=== PATIENT | female | born 1940 | race Caucasian/White ===

== ENCOUNTER 2020-07-18 22:03 | Inpatient (IN) ==
[2020-07-18 23:58] LABS: Bilirubin,Urine Negative (Negative); Blood,Urine Trace-intact (Negative); Clarity,Urine Clear (Clear); Color,Urine Yellow (Yellow); Glucose,Urine (UA) Normal (Normal); Ketones,Urine Negative (Negative); Leukocyte Esterase,Urine Trace (Negative); Nitrite,Urine Negative (Negative); PH,Urine 5.5 pH Units (5.0-8.0); Protein,Urine Negative (Neg-Trace); Urobilinogen,Urine Normal (Normal)
[2020-07-18 23:59] LABS: Basophils % 0.4 %; Eosinophils # 0.2 K/mcL (0.0-0.6); Eosinophils % 1.8 %; Hematocrit 32.1 % (35.3-44.9); Hemoglobin 9.9 g/dL (11.5-15.4); Immature Granulocytes % 0.7 % (0-4); Lymphocytes # 1.1 K/mcL (0.6-4.6); Lymphocytes % 10.8 %; Mean Corpuscular HGB Conc 30.8 g/dL (31.6-35.5); Mean Corpuscular Hemoglobin 28.5 pg (28.0-33.3); Mean Corpuscular Volume 92.5 fL (83.0-100.0); Mean Platelet Volume 10.3 fL (9.4-12.4); Monocytes # 0.6 K/mcL (0.0-1.3); Monocytes % 6.4 %; Platelet Count 188 K/mcL (140-400); Red Blood Count 3.47 M/mcL (3.82-4.97); Red Cell Distribution Width 17.1 % (11.5-14.5); Segmented Neutrophils % 79.9 %
[2020-07-19 00:09] LABS: INR 1.1; Prothrombin Time 12.3 Seconds (9.4-12.1)
[2020-07-19 00:11] LABS: Troponin I < 0.03 ng/mL (< 0.04)
[2020-07-19 00:16] LABS: RBC,Urine 0-3 per hpf (0-3); Squamous Epithelial Cell,Urine Few per hpf (None-Few); WBC,Urine 0-3 per hpf (0-3)
[2020-07-19 00:24] LABS: Thyroid Stimulating Hormone 2.802 mcIU/mL (0.340-5.600)
[2020-07-19 00:49] LABS: Alanine Aminotransferase 16 Units/L (7-52); Albumin 3.2 g/dL (3.5-5.7); Albumin/Globulin Ratio 0.9 (1.1-2.2); Alkaline Phosphatase 85 Units/L (34-104); Aspartate Amino Transferase 18 Units/L (13-39); BUN/Creatinine Ratio 23 (6-26); Bilirubin,Total 0.5 mg/dL (0.3-1.0); Blood Urea Nitrogen 37 mg/dL (8-23); Calcium 8.4 mg/dL (8.6-10.3); Carbon Dioxide 24 mEq/L (23-29); Chloride 105 mEq/L (98-107); Globulin 3.5 g/dL (2.4-3.5); Glucose 128 mg/dL (70-105); Osmolality,Calculated 296 (280-300); Potassium 3.8 mEq/L (3.5-5.1); Sodium 138 mEq/L (136-145); Total Protein 6.7 g/dL (6.4-8.9); eGFR For African Americans 37 (> 60); eGFR For Non-African Americans 31 (> 60)
[2020-07-19] MEDS ORDERED: Ipratropium/Albuterol Neb 3 ML IH STA (01:46)
[2020-07-19] MEDS ORDERED: Ondansetron 4 MG/2 ML VIAL IVP PRN (03:36)
[2020-07-19] MEDS ORDERED: Naloxone 0.4 MG/ML INJ IVP PRN (03:36)
[2020-07-19] MEDS: Ipratropium/Albuterol Neb 3 ML IH SCH ×2 (04:49→08:40)
[2020-07-19 08:04] LABS: Basophils % 0.2 %; Eosinophils # 0.1 K/mcL (0.0-0.6); Eosinophils % 1.3 %; Hematocrit 28.6 % (35.3-44.9); Hemoglobin 8.8 g/dL (11.5-15.4); Immature Granulocytes % 0.8 % (0-4); Lymphocytes # 1.5 K/mcL (0.6-4.6); Lymphocytes % 18.6 %; Mean Corpuscular HGB Conc 30.8 g/dL (31.6-35.5); Mean Corpuscular Hemoglobin 28.6 pg (28.0-33.3); Mean Corpuscular Volume 92.9 fL (83.0-100.0); Mean Platelet Volume 10.2 fL (9.4-12.4); Monocytes # 0.6 K/mcL (0.0-1.3); Monocytes % 7.6 %; Neutrophils # 5.9 K/mcL (1.6-8.9); Platelet Count 154 K/mcL (140-400); Red Blood Count 3.08 M/mcL (3.82-4.97); Red Cell Distribution Width 17.2 % (11.5-14.5); Segmented Neutrophils % 71.5 %; White Blood Count 8.3 K/mcL (4.3-11.1)
[2020-07-19 08:29] LABS: Potassium 3.7 mEq/L (3.5-5.1)
[2020-07-19 08:39] LABS: Prothrombin Time 11.5 Seconds (9.4-12.1)
[2020-07-19] MEDS: Loratadine 10 MG TABLET PO SCH (08:49)
[2020-07-19] MEDS: Aspirin 325 MG TABLET PO SCH (08:50)
[2020-07-19] MEDS: *HR* LORazepam 0.5 MG TABLET PO SCH ×2 (08:50→20:00)
[2020-07-19] MEDS: hydroCHLOROthiazide 25 MG TABLET PO SCH (08:55)
[2020-07-19] MEDS: lisinopriL 20 MG TABLET PO SCH (08:55)
[2020-07-19] MEDS: Verapamil ER (24 HR) 180 MG TABLET.ER PO SCH (08:55)
[2020-07-19] MEDS ORDERED: *HR* SitaGLIPtin 25 MG TABLET PO SCH (09:00)
[2020-07-19] MEDS: Budesonide/Formoterol 160/4.5 1 PUFF INH IH SCH ×2 (10:25→21:40)
[2020-07-19] MEDS: Ipratropium/Albuterol Neb 3 ML IH PRN (22:35)
[2020-07-20] MEDS ORDERED: methylPREDNISolone 125 MG/2 ML VIAL IVP ONE (08:30)
[2020-07-20] MEDS: *HR* LORazepam 0.5 MG TABLET PO SCH ×2 (08:58→21:45)
[2020-07-20] MEDS: Verapamil ER (24 HR) 180 MG TABLET.ER PO SCH (08:58)
[2020-07-20] MEDS: hydroCHLOROthiazide 25 MG TABLET PO SCH (08:58)
[2020-07-20] MEDS: Loratadine 10 MG TABLET PO SCH (08:59)
[2020-07-20] MEDS: Aspirin 325 MG TABLET PO SCH (08:59)
[2020-07-20] MEDS: *HR* SitaGLIPtin 25 MG TABLET PO SCH (08:59)
[2020-07-20] MEDS: lisinopriL 20 MG TABLET PO SCH (08:59)
[2020-07-20 09:06] LABS: Thyroid Stimulating Hormone 2.006 mcIU/mL (0.340-5.600)
[2020-07-20] MEDS: Ipratropium/Albuterol Neb 3 ML IH PRN (10:54)
[2020-07-20] MEDS: Budesonide/Formoterol 160/4.5 1 PUFF INH IH SCH ×2 (10:54→21:56)
[2020-07-20] MEDS ORDERED: Furosemide 20 MG/2 ML VIAL IVP ONE (16:00)
[2020-07-20 17:32] LABS: Triiodothyronine (T3) Free 2.06 pg/mL (2.50-3.90)
[2020-07-21 06:21] LABS: Hematocrit 27.2 % (35.3-44.9); Hemoglobin 8.5 g/dL (11.5-15.4); Mean Corpuscular HGB Conc 31.3 g/dL (31.6-35.5); Mean Corpuscular Hemoglobin 28.8 pg (28.0-33.3); Mean Corpuscular Volume 92.2 fL (83.0-100.0); Mean Platelet Volume 10.7 fL (9.4-12.4); Platelet Count 151 K/mcL (140-400); Red Blood Count 2.95 M/mcL (3.82-4.97); Red Cell Distribution Width 16.8 % (11.5-14.5); White Blood Count 10.4 K/mcL (4.3-11.1)
[2020-07-21 06:39] LABS: Calcium 7.8 mg/dL (8.6-10.3); Potassium 4.5 mEq/L (3.5-5.1)
[2020-07-21] MEDS: Loratadine 10 MG TABLET PO SCH (08:09)
[2020-07-21] MEDS: *HR* SitaGLIPtin 25 MG TABLET PO SCH (08:09)
[2020-07-21] MEDS: Verapamil ER (24 HR) 180 MG TABLET.ER PO SCH (08:09)
[2020-07-21] MEDS: hydroCHLOROthiazide 25 MG TABLET PO SCH (08:09)
[2020-07-21] MEDS: lisinopriL 20 MG TABLET PO SCH (08:10)
[2020-07-21] MEDS: *HR* LORazepam 0.5 MG TABLET PO SCH ×2 (08:10→19:39)
[2020-07-21] MEDS: Aspirin 325 MG TABLET PO SCH (08:10)
[2020-07-21] MEDS: Ipratropium/Albuterol Neb 3 ML IH PRN ×2 (09:53→16:44)
[2020-07-21] MEDS: Budesonide/Formoterol 160/4.5 1 PUFF INH IH SCH ×2 (09:53→20:21)
[2020-07-21] MEDS: Nystatin POWDER 30 GM BOTTLE TP SCH ×2 (13:30→19:39)
[2020-07-21] MEDS: MethylPREDNISolone 40 MG/ML VIAL IVP SCH ×3 (13:32→23:34)
[2020-07-21] MEDS ORDERED: Dextrose Gel 15 GM/37.5 ML TUBE PO PRN ×2 (20:07)
[2020-07-21] MEDS ORDERED: D5% in Water 1,000 ML IVC PRN (20:07)
[2020-07-21] MEDS ORDERED: *HR* Dextrose 50 % in Water (Vial) 50 ML VIAL IVP PRN (20:07)
[2020-07-21] MEDS: Acetaminophen 325 MG TABLET PO PRN (20:33)
[2020-07-21] MEDS: Insulin LISPRO 300 UNITS/3 ML VIAL SQ SCH (20:34)
[2020-07-22 05:34] LABS: Hematocrit 27.7 % (35.3-44.9); Hemoglobin 8.7 g/dL (11.5-15.4); Mean Corpuscular HGB Conc 31.4 g/dL (31.6-35.5); Mean Corpuscular Hemoglobin 29.2 pg (28.0-33.3); Mean Platelet Volume 10.1 fL (9.4-12.4); Platelet Count 185 K/mcL (140-400); Red Blood Count 2.98 M/mcL (3.82-4.97); Red Cell Distribution Width 17.2 % (11.5-14.5); White Blood Count 12.9 K/mcL (4.3-11.1)
[2020-07-22 06:52] LABS: Calcium 7.7 mg/dL (8.6-10.3); Potassium 4.9 mEq/L (3.5-5.1)
[2020-07-22] MEDS: Aspirin 325 MG TABLET PO SCH (08:13)
[2020-07-22] MEDS: hydroCHLOROthiazide 25 MG TABLET PO SCH (08:13)
[2020-07-22] MEDS: *HR* SitaGLIPtin 25 MG TABLET PO SCH (08:13)
[2020-07-22] MEDS: *HR* LORazepam 0.5 MG TABLET PO SCH ×2 (08:13→20:16)
[2020-07-22] MEDS: Loratadine 10 MG TABLET PO SCH (08:13)
[2020-07-22] MEDS: Verapamil ER (24 HR) 180 MG TABLET.ER PO SCH (08:13)
[2020-07-22] MEDS: MethylPREDNISolone 40 MG/ML VIAL IVP SCH ×2 (08:14→15:03)
[2020-07-22] MEDS: lisinopriL 20 MG TABLET PO SCH (08:14)
[2020-07-22] MEDS: Nystatin POWDER 30 GM BOTTLE TP SCH ×3 (08:16→21:30)
[2020-07-22] MEDS: Insulin LISPRO 300 UNITS/3 ML VIAL SQ SCH ×4 (08:25→20:16)
[2020-07-22] MEDS: Budesonide/Formoterol 160/4.5 1 PUFF INH IH SCH ×2 (09:32→20:24)
[2020-07-22] MEDS: Azithromycin 500 MG in 0.9 % Sodium Chloride 250 ML IVPB SCH (10:57)
[2020-07-22] MEDS: Ipratropium/Albuterol Neb 3 ML IH PRN (20:23)
[2020-07-23] MEDS: MethylPREDNISolone 40 MG/ML VIAL IVP SCH ×2 (00:32→08:15)
[2020-07-23] MEDS: Acetaminophen 325 MG TABLET PO PRN ×2 (06:39→19:32)
[2020-07-23] MEDS: Verapamil ER (24 HR) 180 MG TABLET.ER PO SCH (08:15)
[2020-07-23] MEDS: *HR* SitaGLIPtin 25 MG TABLET PO SCH (08:15)
[2020-07-23] MEDS: Aspirin 325 MG TABLET PO SCH (08:15)
[2020-07-23] MEDS: *HR* LORazepam 0.5 MG TABLET PO SCH ×2 (08:15→19:32)
[2020-07-23] MEDS: lisinopriL 20 MG TABLET PO SCH (08:15)
[2020-07-23] MEDS: Loratadine 10 MG TABLET PO SCH (08:15)
[2020-07-23] MEDS: hydroCHLOROthiazide 25 MG TABLET PO SCH (08:15)
[2020-07-23] MEDS: Insulin LISPRO 300 UNITS/3 ML VIAL SQ SCH ×4 (08:17→21:05)
[2020-07-23] MEDS: Nystatin POWDER 30 GM BOTTLE TP SCH ×3 (08:18→19:35)
[2020-07-23] MEDS: Budesonide/Formoterol 160/4.5 1 PUFF INH IH SCH ×2 (08:39→21:03)
[2020-07-23] MEDS: Azithromycin 500 MG in 0.9 % Sodium Chloride 250 ML IVPB SCH (11:37)
[2020-07-23] MEDS ORDERED: cloNIDine HCL 0.1 MG TABLET PO PRN (12:29)
[2020-07-23] MEDS: Ipratropium/Albuterol Neb 3 ML IH PRN (21:03)
[2020-07-24 07:08] VITALS: BP 145/73
[2020-07-24] MEDS: Insulin LISPRO 300 UNITS/3 ML VIAL SQ SCH ×2 (07:42→12:18)
[2020-07-24] MEDS: *HR* SitaGLIPtin 25 MG TABLET PO SCH (07:52)
[2020-07-24] MEDS: hydroCHLOROthiazide 25 MG TABLET PO SCH (07:53)
[2020-07-24] MEDS: Verapamil ER (24 HR) 180 MG TABLET.ER PO SCH (07:53)
[2020-07-24] MEDS: Aspirin 325 MG TABLET PO SCH (07:53)
[2020-07-24] MEDS: Loratadine 10 MG TABLET PO SCH (07:53)
[2020-07-24] MEDS: lisinopriL 20 MG TABLET PO SCH (07:53)
[2020-07-24] MEDS: *HR* LORazepam 0.5 MG TABLET PO SCH (07:53)
[2020-07-24] MEDS: Nystatin POWDER 30 GM BOTTLE TP SCH ×2 (07:54→14:49)
[2020-07-24 08:39] LABS: Eosinophils % 0.1 %; Hematocrit 26.8 % (35.3-44.9); Hemoglobin 8.3 g/dL (11.5-15.4); Immature Granulocytes % 0.7 % (0-4); Lymphocytes # 0.7 K/mcL (0.6-4.6); Lymphocytes % 6.7 %; Mean Corpuscular Hemoglobin 28.8 pg (28.0-33.3); Mean Corpuscular Volume 93.1 fL (83.0-100.0); Mean Platelet Volume 10.2 fL (9.4-12.4); Monocytes # 0.9 K/mcL (0.0-1.3); Neutrophils # 8.9 K/mcL (1.6-8.9); Platelet Count 167 K/mcL (140-400); Red Blood Count 2.88 M/mcL (3.82-4.97); Red Cell Distribution Width 17.3 % (11.5-14.5); Segmented Neutrophils % 84.5 %; White Blood Count 10.6 K/mcL (4.3-11.1)
[2020-07-24] MEDS ORDERED: predniSONE 20 MG TABLET PO SCH (09:00)
[2020-07-24 09:17] LABS: Calcium 7.6 mg/dL (8.6-10.3); Potassium 3.9 mEq/L (3.5-5.1)
[2020-07-24] MEDS: Ipratropium/Albuterol Neb 3 ML IH PRN (10:40)
[2020-07-24] MEDS: Budesonide/Formoterol 160/4.5 1 PUFF INH IH SCH (10:41)
[2020-07-24] MEDS: Azithromycin 500 MG in 0.9 % Sodium Chloride 250 ML IVPB SCH (12:20)
== END 2020-07-24 15:17 | disposition other institution (70) | DRG 191 ==
LOC: INPPIK 22:03 → EMEROOPIK 22:03 → INPPIK 07-19 03:14
PROVIDERS: ADMIT Family Medicine; ATTEND Family Medicine

== ENCOUNTER 2020-07-24 13:46 | Inpatient (IN) ==
[2020-07-24] MEDS ORDERED: Nystatin POWDER 30 GM BOTTLE TP PRN (14:23)
[2020-07-24] MEDS: Ipratropium/Albuterol Neb 3 ML IH SCH ×3 (16:32→23:18)
[2020-07-24] MEDS: Insulin LISPRO 300 UNITS/3 ML VIAL SQ SCH ×2 (16:43→20:48)
[2020-07-24] MEDS: *HR* LORazepam 0.5 MG TABLET PO SCH (19:52)
[2020-07-24] MEDS ORDERED: Acetaminophen 325 MG TABLET PO PRN (20:01)
[2020-07-24] MEDS: Budesonide/Formoterol 160/4.5 1 PUFF INH IH SCH (20:09)
[2020-07-25] MEDS: Ipratropium/Albuterol Neb 3 ML IH SCH ×2 (04:00→07:31)
[2020-07-25 05:49] LABS: Eosinophils # 0.1 K/mcL (0.0-0.6); Eosinophils % 0.7 %; Hematocrit 25.4 % (35.3-44.9); Hemoglobin 7.8 g/dL (11.5-15.4); Immature Granulocytes % 0.5 % (0-4); Lymphocytes # 0.8 K/mcL (0.6-4.6); Lymphocytes % 7.8 %; Mean Corpuscular HGB Conc 30.7 g/dL (31.6-35.5); Mean Corpuscular Hemoglobin 28.6 pg (28.0-33.3); Mean Platelet Volume 9.9 fL (9.4-12.4); Monocytes # 0.7 K/mcL (0.0-1.3); Monocytes % 6.6 %; Neutrophils # 9.1 K/mcL (1.6-8.9); Platelet Count 156 K/mcL (140-400); Red Blood Count 2.73 M/mcL (3.82-4.97); Red Cell Distribution Width 17.7 % (11.5-14.5); Segmented Neutrophils % 84.4 %; White Blood Count 10.8 K/mcL (4.3-11.1)
[2020-07-25 06:08] LABS: Calcium 7.4 mg/dL (8.6-10.3); Potassium 4.1 mEq/L (3.5-5.1)
[2020-07-25] MEDS: Budesonide/Formoterol 160/4.5 1 PUFF INH IH SCH ×2 (07:32→21:13)
[2020-07-25] MEDS: Azithromycin 250 MG TABLET PO SCH (09:33)
[2020-07-25] MEDS: *HR* SitaGLIPtin 25 MG TABLET PO SCH (09:33)
[2020-07-25] MEDS: Insulin LISPRO 300 UNITS/3 ML VIAL SQ SCH ×4 (09:33→21:22)
[2020-07-25] MEDS: lisinopriL 20 MG TABLET PO SCH (09:33)
[2020-07-25] MEDS: Verapamil ER (24 HR) 180 MG TABLET.ER PO SCH (09:34)
[2020-07-25] MEDS: hydroCHLOROthiazide 25 MG TABLET PO SCH (09:34)
[2020-07-25] MEDS: Loratadine 10 MG TABLET PO SCH (09:34)
[2020-07-25] MEDS: predniSONE 20 MG TABLET PO SCH (09:34)
[2020-07-25] MEDS: *HR* LORazepam 0.5 MG TABLET PO SCH ×2 (09:34→20:13)
[2020-07-25] MEDS: Aspirin Enteric Coated 325 MG Tablet PO SCH (09:36)
[2020-07-25] MEDS ORDERED: Ondansetron ODT 4 MG TAB.RAPDIS SL PRN (18:09)
[2020-07-25] MEDS: Ipratropium/Albuterol Neb 3 ML IH PRN (21:13)
[2020-07-26] MEDS: Ipratropium/Albuterol Neb 3 ML IH PRN (05:24)
[2020-07-26 06:52] VITALS: BP 157/83
[2020-07-26] MEDS: Insulin LISPRO 300 UNITS/3 ML VIAL SQ SCH ×2 (09:55→13:44)
[2020-07-26] MEDS: Azithromycin 250 MG TABLET PO SCH (09:57)
[2020-07-26] MEDS: predniSONE 20 MG TABLET PO SCH (09:57)
[2020-07-26] MEDS: Loratadine 10 MG TABLET PO SCH (09:58)
[2020-07-26] MEDS: *HR* SitaGLIPtin 25 MG TABLET PO SCH (09:58)
[2020-07-26] MEDS: lisinopriL 20 MG TABLET PO SCH (09:58)
[2020-07-26] MEDS: hydroCHLOROthiazide 25 MG TABLET PO SCH (09:58)
[2020-07-26] MEDS: *HR* LORazepam 0.5 MG TABLET PO SCH (09:58)
[2020-07-26] MEDS: Verapamil ER (24 HR) 180 MG TABLET.ER PO SCH (09:58)
[2020-07-26] MEDS: Aspirin Enteric Coated 325 MG Tablet PO SCH (10:05)
[2020-07-26] MEDS: Budesonide/Formoterol 160/4.5 1 PUFF INH IH SCH (10:33)
== END 2020-07-26 17:27 | disposition home health service (06) | DRG 189 ==
LOC: INPPIK 15:19
PROVIDERS: ADMIT Family Medicine; ATTEND Family Medicine

== ENCOUNTER 2020-12-20 20:37 | Observation (INO) ==
[2020-12-20 21:14] LABS: Basophils % 0.2 %; Hematocrit 31.5 % (35.3-44.9); Hemoglobin 9.3 g/dL (11.5-15.4); Immature Granulocytes % 1.3 % (0-4); Lymphocytes # 0.3 K/mcL (0.6-4.6); Lymphocytes % 2.6 %; Mean Corpuscular HGB Conc 29.5 g/dL (31.6-35.5); Mean Corpuscular Volume 91.3 fL (83.0-100.0); Mean Platelet Volume 9.5 fL (9.4-12.4); Monocytes # 0.3 K/mcL (0.0-1.3); Monocytes % 2.6 %; Platelet Count 187 K/mcL (140-400); Red Blood Count 3.45 M/mcL (3.82-4.97); Red Cell Distribution Width 17.4 % (11.5-14.5); Segmented Neutrophils % 93.3 %; White Blood Count 12.2 K/mcL (4.3-11.1)
[2020-12-20 21:31] LABS: Neutrophils # 11.4 K/mcL (1.6-8.9)
[2020-12-20 21:33] LABS: Activated Partial Thrombo Time 29.2 Seconds (26.0-36.0)
[2020-12-20] MEDS ORDERED: methylPREDNISolone 125 MG/2 ML VIAL IVP ONE (21:34)
[2020-12-20] MEDS ORDERED: levoFLOXacin 500 MG/100 ML 500 MG/100 ML BAG IVPB ONE (21:34)
[2020-12-20 21:41] LABS: Albumin 3.6 g/dL (3.5-5.7); Albumin/Globulin Ratio 1.2 (1.1-2.2); Bilirubin,Total 0.3 mg/dL (0.3-1.0); Calcium 8.3 mg/dL (8.6-10.3); Globulin 2.9 g/dL (2.4-3.5); Potassium 4.7 mEq/L (3.5-5.1); Total Protein 6.5 g/dL (6.4-8.9)
[2020-12-20 21:42] LABS: Troponin I 0.03 ng/mL (< 0.04)
[2020-12-20] MEDS ORDERED: Naloxone 0.4 MG/ML INJ IVP PRN ×2 (22:57→23:40)
[2020-12-20] MEDS ORDERED: Ondansetron 4 MG/2 ML VIAL IVP PRN ×2 (22:57→23:40)
[2020-12-20] MEDS ORDERED: 0.9 % Sodium Chloride 1,000 ML IVC SCH ×2 (23:00→23:40)
[2020-12-20 23:12] LABS: ABG Base Excess -4 mEq/L (-2 to 3); ABG HCO3 21 mEq/L (21-27); ABG Oxygen Saturation 98 % (95-98); ABG PCO2 38 mmHg (35-45); ABG PH 7.35 pH Units (7.32-7.45); ABG PO2 103 mmHg (85-104); ABG TCO2 22 mEq/L (20-26)
[2020-12-20] MEDS: Ipratropium/Albuterol Neb 3 ML IH SCH ×2 (23:14→23:20)
[2020-12-21] MEDS ORDERED: Dextrose Gel 15 GM/37.5 ML TUBE PO PRN ×2 (00:18)
[2020-12-21] MEDS ORDERED: *HR* Dextrose 50 % in Water (Vial) 50 ML VIAL IVP PRN (00:18)
[2020-12-21] MEDS ORDERED: D5% in Water 1,000 ML IVC PRN (00:18)
[2020-12-21] MEDS ORDERED: Acetaminophen 325 MG TABLET PO PRN (00:46)
[2020-12-21] MEDS: Ipratropium/Albuterol Neb 3 ML IH SCH ×3 (03:49→08:33)
[2020-12-21] MEDS ORDERED: *HR* Heparin 5,000 UNIT/ML VIAL SQ SCH (06:00)
[2020-12-21 06:30] VITALS: BP 115/69
[2020-12-21] MEDS ORDERED: Ipratropium Neb 0.5 MG NEBULIZER IH ONE (06:43)
[2020-12-21] MEDS ORDERED: Levalbuterol Neb 0.63 MG/3 ML IH ONE (06:43)
[2020-12-21] MEDS ORDERED: Verapamil ER (24 HR) 180 MG TABLET.ER PO SCH ×2 (07:00→09:00)
[2020-12-21] MEDS ORDERED: Insulin LISPRO 300 UNITS/3 ML VIAL SUBQ SCH ×2 (07:30→21:00)
[2020-12-21 07:45] LABS: Hematocrit 29.6 % (35.3-44.9); Hemoglobin 8.9 g/dL (11.5-15.4); Immature Granulocytes % 1.1 % (0-4); Lymphocytes # 0.3 K/mcL (0.6-4.6); Lymphocytes % 2.2 %; Mean Corpuscular HGB Conc 30.1 g/dL (31.6-35.5); Mean Corpuscular Hemoglobin 27.2 pg (28.0-33.3); Mean Corpuscular Volume 90.5 fL (83.0-100.0); Mean Platelet Volume 9.7 fL (9.4-12.4); Monocytes # 0.1 K/mcL (0.0-1.3); Monocytes % 0.7 %; Neutrophils # 10.8 K/mcL (1.6-8.9); Platelet Count 163 K/mcL (140-400); Red Blood Count 3.27 M/mcL (3.82-4.97); Red Cell Distribution Width 17.2 % (11.5-14.5); White Blood Count 11.2 K/mcL (4.3-11.1)
[2020-12-21 08:03] LABS: Calcium 8.1 mg/dL (8.6-10.3); Potassium 4.6 mEq/L (3.5-5.1)
[2020-12-21] MEDS ORDERED: *HR* SitaGLIPtin 25 MG TABLET PO SCH ×2 (09:00)
[2020-12-21] MEDS ORDERED: Loratadine 10 MG TABLET PO SCH ×2 (09:00)
[2020-12-21] MEDS ORDERED: Aspirin 81 MG TAB.CHEW PO SCH (09:00)
[2020-12-21] MEDS ORDERED: *HR* LORazepam 0.5 MG TABLET PO SCH ×2 (09:00)
[2020-12-21] MEDS ORDERED: hydroCHLOROthiazide 25 MG TABLET PO SCH ×2 (09:00)
[2020-12-21] MEDS ORDERED: lisinopriL 20 MG TABLET PO SCH ×2 (09:00)
[2020-12-21] MEDS ORDERED: Aspirin 325 MG TABLET PO SCH (09:00)
[2020-12-22] MEDS ORDERED: levoFLOXacin 750 MG/150 ML 750 MG/150 ML BAG IVPB SCH ×2 (09:00)
== END 2020-12-21 10:32 | disposition other institution (70) ==
LOC: INPPIK 20:37 → EMEROOPIK 20:37 → INPPIK 23:28
PROVIDERS: ADMIT Family Medicine; ATTEND Family Medicine